=== PATIENT | female | born 1960 | race Caucasian/White ===

== ENCOUNTER 2016-12-02 18:04 | Emergency (ER) | payer OTHER ==
[2016-12-02 19:15] VITALS: BP 156/90
--- NOTE | 2016-12-02 19:31 | UC ---
Dental HPI - HPI Summary HPI Summary: Firm lump noted on roof mouth---no pain no injury - History of Current Complaint Chief Complaint: UCDentalProblem Stated Complaint: SORE IN MOUTH Time Seen by Provider: 12/02/16 19:24 Hx Obtained From: Patient ?: No Onset/Duration: Sudden Onset - noticed for the first time tonight Pain Intensity: 0 Related History: Swelling - Allergies/Home Medications Allergies/Adverse Reactions: Allergies Allergy/AdvReac Type Severity Reaction Status Date / Time Latex Allergy Rash Verified 12/02/16 19:15 NOVACAINE Allergy Swelling Uncoded 12/02/16 19:15 Of Face,Lips,& Throat PMH/Surg Hx/FS Hx/Imm Hx Previously Healthy: No Cardiovascular History: Hypertension Psychological History: Anxiety - Surgical History Surgical History: Yes Surgery Procedure, Year, and Place: KIDNEYS - DUE TO INFECTION. C SECTION - 1988. TUBAL LIGATION - Family History Known Family History: Positive: None - Social History Occupation: Works From/At Home Lives: With Family Alcohol Use: None Substance Use Type: None Smoking Status (MU): Light Every Day Tobacco Smoker Type: Cigarettes Household Exposure Type: Cigarettes Cessation Counseling: Patient Advised to Stop Review of Systems Constitutional: Negative Skin: Negative Eyes: Negative ENT: Negative, Other - concerned about a lump on the top of her mouth Respiratory: Negative Cardiovascular: Negative Gastrointestinal: Negative Genitourinary: Negative Motor: Negative Neurovascular: Negative Musculoskeletal: Negative Neurological: Negative Psychological: Negative Is Patient Immunocompromised?: No All Other Systems Reviewed And Are Negative: Yes Physical Exam Triage Information Reviewed: Yes Appearance: No Pain Distress, Ill-Appearing - appears older than stated age, Obese Vital Signs: Initial Vital Signs Temp 97.2 F 12/02/16 19:13 Pulse 119 12/02/16 19:13 Resp 18 12/02/16 19:13 BP 156/90 12/02/16 19:13 Pulse Ox 100 12/02/16 19:13 Vital Signs Reviewed: Yes Eye Exam: Normal Eyes: Positive: Conjunctiva Clear ENT Exam: Normal ENT: Positive: Normal ENT inspection, Hearing grossly normal, Pharynx normal. Negative: Nasal congestion, Nasal drainage, Trismus, Muffled/hoarse voice Dental Exam: Normal Dental: Positive: Percussion Tenderness @, Gross Decay/Caries @, Other: - torus on hard palate Neck exam: Normal Neck: Positive: Supple, Nontender, No Lymphadenopathy Respiratory Exam: Normal Respiratory: Positive: Chest non-tender, No respiratory distress, No accessory muscle use Cardiovascular Exam: Normal Cardiovascular: Positive: RRR, Pulses Normal, Brisk Capillary Refill Musculoskeletal Exam: Normal Musculoskeletal: Positive: Strength Intact, ROM Intact, No Edema Neurological Exam: Normal Neurological: Positive: Alert, Muscle Tone Normal Psychological Exam: Normal Psychological: Positive: Normal Response To Family Skin Exam: Normal Dental Complaint Course/Dx - Course Course Of Treatment: clorhexadiene rinse, follow with dentist as planned - Differential Dx/Diagnosis Differential Diagnosis/Dx: Dental Caries, Other - torus on hard palate Provider Diagnoses: Torus hard palate, dental caries Discharge - Discharge Plan Condition: Stable Disposition: HOME Prescriptions: Chlorhexidine MOUTHWASH 0.12%* [Peridex Mouth Wash 0.12%*] 15 ml .SEE ORDER TID #473 [email or web address] Patient Education Materials: Toothache (ED), Hypertension (ED) Referrals: Ignacio Bear NP [Primary Care Provider] - Additional Instructions: A hard lump on the roof of the mouth may be a bone growth called a torus. These growths do not pose a health risk and are generally left untreated unless they cause difficulties while eating or a person requires dentures Follow with dentist as planned
== END 2016-12-02 19:46 | disposition home or self-care (01) ==
LOC: UCEAST 18:04
DX: K02.9 Dental caries, unspecified (principal); F17.210 Nicotine dependence, cigarettes, uncomplicated; I10 Essential (primary) hypertension; M27.0 Developmental disorders of jaws
CPT/HCPCS: 99212; G0463

== ENCOUNTER 2023-05-12 11:54 | Inpatient (IN) ==
[2023-05-12 13:09] LABS: ABS Basophils 0.1 10^3/uL (0.0-0.1); ABS Eosinophils 0.2 10^3/uL (0.0-0.5); ABS Lymphocytes 1.7 10^3/uL (1.0-4.8); ABS Monocytes 0.6 10^3/uL (0.0-0.9); ABS Neutrophils 15.1 10^3/uL (1.5-7.6); ABS Nucleated RBC 0.01 10^3/ul; Eosinophil % 1.2 %; Hematocrit 37.3 % (35-45); Hemoglobin 12.8 g/dL (11.5-14.3); Lymphocyte % 9.7 %; Mean Corpuscular Hemoglobin 29.4 pg (27-33); Mean Corpuscular Hgb Conc 34.3 g/dL (31-36); Mean Corpuscular Volume 85.6 fL (80-97); Mean Platelet Volume 7.9 fL (7.5-11.2); Nucleated Red Blood Cells % 0.1 %/100WBC (0.0-0.8); Platelet Count 464 10^3/uL (150-450); Red Blood Count 4.36 10^6/uL (3.63-4.92); Red Cell Distribution Width 14.1 % (12-17); White Blood Count 17.7 10^3/uL (3.8-11.8)
[2023-05-12 13:48] LABS: ALT 62 U/L (7-52); Albumin 2.7 g/dL (3.2-5.2); Albumin/Globulin Ratio 0.8 (1-3); Alkaline Phosphatase 210 U/L (35-149); Anion Gap 13 mmol/L (2-16); Blood Urea Nitrogen 28 mg/dL (6-24); CO2 Carbon Dioxide 28 mmol/L (22-32); Calcium 8.1 mg/dL (8.6-10.3); Chloride 96 mmol/L (101-111); Creatinine, Serum 1.05 mg/dL (0.51-0.95); Globulin 3.6 g/dL (2-4); Glucose 138 mg/dL (70-100); Sodium 137 mmol/L (135-145); Total Protein 6.3 g/dL (6.4-8.9); eGFR CKD-EPI 60.5 (>60)
[2023-05-12 14:21] LABS: Urine Appearance Turbid; Urine Bilirubin Negative (Negative); Urine Blood 3+ (Negative); Urine Color Yellow; Urine Glucose Negative (Negative); Urine Ketones Negative (Negative); Urine Nitrite Negative (Negative); Urine Protein 2+ (>=100 mg/dL) (Negative); Urine Specific Gravity 1.014 (1.002-1.030); Urine Urobilinogen Negative (Negative); Urine pH 7.5 (5.0-8.0)
[2023-05-12 14:39] LABS: Urine Bacteria 1+ /HPF (Absent); Urine Red Blood Cell 3+(>10/hpf) /HPF (0-Trace); Urine Squamous Epithelial Cell Present /HPF (Absent); Urine White Blood Cell 2+(11-20/hpf) /HPF (0-Trace)
[2023-05-12] MEDS: Lactated Ringers 1000 ml BAG 1,000 ML IV ONE ×2 (14:47→16:45)
[2023-05-12] MEDS: Cefepime 2 GM in Dextrose 2 GM/50 ML BAG IV ONE (15:14)
[2023-05-12] MEDS: Enoxaparin 40 MG/0.4 ML SYR SUBCUT SCH (16:44)
[2023-05-12] MEDS: Potassium Chlor 20 meq TAB.ER PO ONE (16:44)
[2023-05-12] MEDS ORDERED: Albuterol HFA INHALER 8 gm MDI INH PRN (17:12)
[2023-05-12 22:06] LABS: Creatine Kinase 3231 U/L (10-223)
[2023-05-12 22:22] LABS: Hepatitis C Antibody Negative (Negative)
[2023-05-13 04:12] LABS: Rheumatoid Factor 584 IU/mL (<15)
[2023-05-13 06:49] LABS: ABS Basophils 0.1 10^3/uL (0.0-0.1); ABS Eosinophils 0.5 10^3/uL (0.0-0.5); ABS Lymphocytes 1.2 10^3/uL (1.0-4.8); ABS Monocytes 0.5 10^3/uL (0.0-0.9); ABS Neutrophils 10.9 10^3/uL (1.5-7.6); Eosinophil % 3.5 %; Hematocrit 35.1 % (35-45); Hemoglobin 11.6 g/dL (11.5-14.3); Lymphocyte % 9.2 %; Mean Corpuscular Volume 87.8 fL (80-97); Mean Platelet Volume 7.5 fL (7.5-11.2); Platelet Count 318 10^3/uL (150-450); Red Cell Distribution Width 14.5 % (12-17); White Blood Count 13.1 10^3/uL (3.8-11.8)
[2023-05-13 07:09] LABS: Calcium 7.3 mg/dL (8.6-10.3); Creatinine, Serum 0.87 mg/dL (0.51-0.95); Magnesium 1.8 mg/dL (1.9-2.7); Potassium 3.5 mmol/L (3.5-5.0); eGFR CKD-EPI 75.8 (>60)
[2023-05-13 07:23] LABS: TSH Ultra Thyroid Stim Horm 1.87 mcIU/mL (0.34-5.60)
[2023-05-13] MEDS: Aspirin EC 81 mg TAB.EC (enteric coated) PO SCH (08:48)
[2023-05-13] MEDS: Morphine 2 MG/ML SYRINGE IV ONE (20:27)
[2023-05-14 06:38] LABS: ABS Basophils 0.1 10^3/uL (0.0-0.1); ABS Eosinophils 0.8 10^3/uL (0.0-0.5); ABS Lymphocytes 1.7 10^3/uL (1.0-4.8); ABS Monocytes 0.5 10^3/uL (0.0-0.9); ABS Neutrophils 10.9 10^3/uL (1.5-7.6); Eosinophil % 5.7 %; Hematocrit 32.9 % (35-45); Hemoglobin 11.2 g/dL (11.5-14.3); Lymphocyte % 11.8 %; Mean Corpuscular Hemoglobin 28.9 pg (27-33); Mean Corpuscular Hgb Conc 33.9 g/dL (31-36); Mean Corpuscular Volume 85.3 fL (80-97); Mean Platelet Volume 7.6 fL (7.5-11.2); Platelet Count 326 10^3/uL (150-450); Red Blood Count 3.86 10^6/uL (3.63-4.92); Red Cell Distribution Width 14.4 % (12-17)
[2023-05-14 07:15] LABS: Albumin 2.2 g/dL (3.2-5.2); Albumin/Globulin Ratio 0.8 (1-3); Calcium 7.4 mg/dL (8.6-10.3); Creatinine, Serum 0.97 mg/dL (0.51-0.95); Globulin 2.7 g/dL (2-4); Potassium 3.5 mmol/L (3.5-5.0); Total Bilirubin 0.9 mg/dL (0.2-1.0); Total Protein 4.9 g/dL (6.4-8.9); eGFR CKD-EPI 66.5 (>60)
[2023-05-14] MEDS: HYDROcodone/Acetamin 10/325 TAB (NF) PO PRN (10:57)
[2023-05-15 06:49] LABS: ABS Basophils 0.1 10^3/uL (0.0-0.1); ABS Eosinophils 0.8 10^3/uL (0.0-0.5); ABS Lymphocytes 1.4 10^3/uL (1.0-4.8); ABS Monocytes 0.5 10^3/uL (0.0-0.9); ABS Neutrophils 11.8 10^3/uL (1.5-7.6); ABS Nucleated RBC 0.01 10^3/ul; Eosinophil % 5.8 %; Hematocrit 33.1 % (35-45); Hemoglobin 11.1 g/dL (11.5-14.3); Lymphocyte % 9.3 %; Mean Corpuscular Hemoglobin 28.7 pg (27-33); Mean Corpuscular Hgb Conc 33.6 g/dL (31-36); Mean Corpuscular Volume 85.5 fL (80-97); Mean Platelet Volume 7.9 fL (7.5-11.2); Nucleated Red Blood Cells % 0.1 %/100WBC (0.0-0.8); Platelet Count 343 10^3/uL (150-450); Red Blood Count 3.87 10^6/uL (3.63-4.92); Red Cell Distribution Width 14.3 % (12-17); White Blood Count 14.6 10^3/uL (3.8-11.8)
[2023-05-15 07:08] LABS: Albumin 2.2 g/dL (3.2-5.2); Albumin/Globulin Ratio 0.8 (1-3); Calcium 7.4 mg/dL (8.6-10.3); Creatinine, Serum 1.05 mg/dL (0.51-0.95); Globulin 2.9 g/dL (2-4); Potassium 3.9 mmol/L (3.5-5.0); Total Bilirubin 0.7 mg/dL (0.2-1.0); Total Protein 5.1 g/dL (6.4-8.9); eGFR CKD-EPI 60.5 (>60)
[2023-05-15 12:03] LABS: Scl 70 Ab, IgG, S <0.2 U
[2023-05-15 21:00] LABS: Hepatitis B Surface Antigen Nonreactive (Nonreactive)
[2023-05-15 21:05] LABS: Hepatitis B Core IgM Nonreactive (Nonreactive)
[2023-05-15 21:18] LABS: Hepatitis B Surface Ab Immune (Immune)
[2023-05-16 06:51] LABS: ABS Basophils 0.1 10^3/uL (0.0-0.1); ABS Eosinophils 1.1 10^3/uL (0.0-0.5); ABS Lymphocytes 1.3 10^3/uL (1.0-4.8); ABS Monocytes 0.4 10^3/uL (0.0-0.9); ABS Neutrophils 12.5 10^3/uL (1.5-7.6); Hematocrit 32.7 % (35-45); Hemoglobin 11.2 g/dL (11.5-14.3); Lymphocyte % 8.5 %; Mean Corpuscular Hemoglobin 29.2 pg (27-33); Mean Corpuscular Hgb Conc 34.1 g/dL (31-36); Mean Corpuscular Volume 85.5 fL (80-97); Mean Platelet Volume 7.5 fL (7.5-11.2); Platelet Count 336 10^3/uL (150-450); Red Blood Count 3.83 10^6/uL (3.63-4.92); Red Cell Distribution Width 14.4 % (12-17); White Blood Count 15.4 10^3/uL (3.8-11.8)
[2023-05-16 07:10] LABS: Calcium 7.7 mg/dL (8.6-10.3); Creatinine, Serum 1.07 mg/dL (0.51-0.95); Potassium 4.8 mmol/L (3.5-5.0); eGFR CKD-EPI 59.1 (>60)
[2023-05-16] MEDS: Nystatin TOP POWDER 15 GM BTL TOPICAL SCH (20:56)
[2023-05-17 06:07] LABS: ABS Basophils 0.1 10^3/uL (0.0-0.1); ABS Eosinophils 1.1 10^3/uL (0.0-0.5); ABS Lymphocytes 1.6 10^3/uL (1.0-4.8); ABS Monocytes 0.7 10^3/uL (0.0-0.9); ABS Neutrophils 10.8 10^3/uL (1.5-7.6); Eosinophil % 7.8 %; Hemoglobin 10.4 g/dL (11.5-14.3); Lymphocyte % 11.2 %; Mean Corpuscular Hgb Conc 33.7 g/dL (31-36); Mean Corpuscular Volume 85.8 fL (80-97); Mean Platelet Volume 7.8 fL (7.5-11.2); Platelet Count 330 10^3/uL (150-450); Red Blood Count 3.61 10^6/uL (3.63-4.92); Red Cell Distribution Width 14.5 % (12-17); White Blood Count 14.3 10^3/uL (3.8-11.8)
[2023-05-17 06:48] LABS: Calcium 7.5 mg/dL (8.6-10.3); Creatinine, Serum 1.13 mg/dL (0.51-0.95); eGFR CKD-EPI 55.4 (>60)
[2023-05-17 13:13] LABS: Hepatitis Be Antigen Positive (Negative)
[2023-05-17 13:17] LABS: Hepatitis Be Antibody Negative (Negative)
[2023-05-17 17:16] LABS: JO-1 Antibody <0.2 U
[2023-05-17] MEDS: Iohexol 350 (CONTRAST) 500 ML MDV IV ONE (19:26)
[2023-05-18 06:32] LABS: ABS Lymphocytes 1.5 10^3/uL (1.0-4.8); ABS Monocytes 0.7 10^3/uL (0.0-0.9); ABS Neutrophils 11.6 10^3/uL (1.5-7.6); ABS Nucleated RBC 0.02 10^3/ul; Eosinophil % 0.3 %; Hematocrit 32.5 % (35-45); Hemoglobin 10.5 g/dL (11.5-14.3); Lymphocyte % 10.5 %; Mean Corpuscular Hgb Conc 32.3 g/dL (31-36); Mean Corpuscular Volume 89.7 fL (80-97); Mean Platelet Volume 7.5 fL (7.5-11.2); Nucleated Red Blood Cells % 0.1 %/100WBC (0.0-0.8); Platelet Count 367 10^3/uL (150-450); Red Blood Count 3.62 10^6/uL (3.63-4.92); Red Cell Distribution Width 15.3 % (12-17); White Blood Count 13.8 10^3/uL (3.8-11.8)
[2023-05-18 07:03] LABS: Calcium 8.5 mg/dL (8.6-10.3); Creatinine, Serum 1.1 mg/dL (0.51-0.95); Potassium 5.3 mmol/L (3.5-5.0); eGFR CKD-EPI 57.2 (>60)
[2023-05-18 11:33] LABS: C-ANCA Positive 1:256 (Negative); P-ANCA Negative (Negative)
[2023-05-18] MEDS: Polyethylene Glycol 3350 17 GM PACKET PO PRN (12:54)
[2023-05-18 13:05] LABS: Mitochondria M2 Antibody <0.1 U
[2023-05-18 13:18] LABS: Cyclic Citrullinated Pept IgG >250.0 U
[2023-05-18] MEDS ORDERED: Senna TAB 8.6 mg TAB PO PRN (14:31)
[2023-05-18] MEDS: Lactulose 30 ml UDC PO SCH (20:27)
[2023-05-19 06:13] LABS: ABS Basophils 0.1 10^3/uL (0.0-0.1); ABS Eosinophils 0.1 10^3/uL (0.0-0.5); ABS Lymphocytes 2.1 10^3/uL (1.0-4.8); ABS Monocytes 0.9 10^3/uL (0.0-0.9); ABS Neutrophils 13.2 10^3/uL (1.5-7.6); Eosinophil % 0.9 %; Hematocrit 30.7 % (35-45); Hemoglobin 10.2 g/dL (11.5-14.3); Lymphocyte % 12.8 %; Mean Corpuscular Hemoglobin 28.4 pg (27-33); Mean Corpuscular Hgb Conc 33.3 g/dL (31-36); Mean Corpuscular Volume 85.4 fL (80-97); Mean Platelet Volume 7.4 fL (7.5-11.2); Platelet Count 403 10^3/uL (150-450); Red Cell Distribution Width 14.8 % (12-17); White Blood Count 16.4 10^3/uL (3.8-11.8)
[2023-05-19 06:56] LABS: Albumin 2.3 g/dL (3.2-5.2); Albumin/Globulin Ratio 0.8 (1-3); Calcium 8.2 mg/dL (8.6-10.3); Creatinine, Serum 1.06 mg/dL (0.51-0.95); Potassium 4.6 mmol/L (3.5-5.0); Total Bilirubin 0.3 mg/dL (0.2-1.0); Total Protein 5.3 g/dL (6.4-8.9); eGFR CKD-EPI 59.8 (>60)
[2023-05-19 12:52] LABS: Cytomegalovirus IgG Antibody Positive (Negative)
[2023-05-19 15:53] LABS: UR Microalbumin (mg/L) 314.5 mg/L; Urine Creatinine 39.31 mg/dL; Urine Creatinine Concentration 39.31 mg/dL (20.00-320.00)
[2023-05-19 18:35] LABS: Hepatitis B DNA Quantitative Undetected IU/mL (Undetected)
[2023-05-20 06:59] LABS: Hematocrit 31.6 % (35-45); Hemoglobin 10.5 g/dL (11.5-14.3); Mean Corpuscular Hemoglobin 28.5 pg (27-33); Mean Corpuscular Hgb Conc 33.2 g/dL (31-36); Mean Corpuscular Volume 85.8 fL (80-97); Red Blood Count 3.68 10^6/uL (3.63-4.92); Red Cell Distribution Width 14.7 % (12-17); White Blood Count 19.9 10^3/uL (3.8-11.8)
[2023-05-20 07:31] LABS: ABS Basophils 0.1 10^3/uL (0.0-0.1); ABS Eosinophils 0.1 10^3/uL (0.0-0.5); ABS Lymphocytes 2.9 10^3/uL (1.0-4.8); ABS Monocytes 0.9 10^3/uL (0.0-0.9); ABS Neutrophils 15.9 10^3/uL (1.5-7.6); ABS Nucleated RBC 0.01 10^3/ul; Eosinophil % 0.3 %; Giant Platelets Present; Large Platelets Present; Lymphocyte % 14.8 %; Nucleated Red Blood Cells % 0.1 %/100WBC (0.0-0.8)
[2023-05-20 09:10] LABS: Albumin 2.7 g/dL (3.2-5.2); Albumin/Globulin Ratio 0.7 (1-3); Calcium 8.7 mg/dL (8.6-10.3); Creatinine, Serum 1.11 mg/dL (0.51-0.95); Globulin 3.7 g/dL (2-4); Potassium 4.8 mmol/L (3.5-5.0); Total Bilirubin 0.4 mg/dL (0.2-1.0); Total Protein 6.4 g/dL (6.4-8.9); eGFR CKD-EPI 56.6 (>60)
[2023-05-20] MEDS ORDERED: riTUXimab-ABBS 10 MG/ML 10 ML VIAL IVPB SCH (11:00)
[2023-05-21 06:35] LABS: ABS Lymphocytes 1.4 10^3/uL (1.0-4.8); ABS Monocytes 0.8 10^3/uL (0.0-0.9); ABS Neutrophils 11.8 10^3/uL (1.5-7.6); ABS Nucleated RBC 0.02 10^3/ul; Eosinophil % 0.3 %; Hemoglobin 10.7 g/dL (11.5-14.3); Lymphocyte % 10.2 %; Mean Corpuscular Hemoglobin 28.5 pg (27-33); Mean Corpuscular Hgb Conc 33.6 g/dL (31-36); Mean Corpuscular Volume 84.9 fL (80-97); Nucleated Red Blood Cells % 0.1 %/100WBC (0.0-0.8); Platelet Count 457 10^3/uL (150-450); Red Blood Count 3.77 10^6/uL (3.63-4.92); Red Cell Distribution Width 14.8 % (12-17); White Blood Count 14.1 10^3/uL (3.8-11.8)
[2023-05-21 07:00] LABS: Calcium 8.3 mg/dL (8.6-10.3); Creatinine, Serum 1.08 mg/dL (0.51-0.95); eGFR CKD-EPI 58.4 (>60)
[2023-05-21] MEDS ORDERED: methylPREDNISolone SOD SUCC 1000 MG ML VIAL IVPB SCH (13:00)
[2023-05-21] MEDS ORDERED: methylPREDNISolone SOD SUCC 1000 MG in NS 0.9% 100 ML IVPB ONE (13:00)
[2023-05-21] MEDS ORDERED: methylPREDNISolone SOD SUCC 1000 MG in NS 0.9% 100 ML IVPB SCH (13:00)
[2023-05-21] MEDS: HYDROcodone/ACETAMIN 5/325 mg TAB PO PRN (13:34)
[2023-05-21] MEDS: methylPREDNISolone SOD SUCC 1,000 MG in NS 0.9% 250 ml 250 ML IVPB SCH (14:24)
[2023-05-22 06:53] LABS: ABS Lymphocytes 1.1 10^3/uL (1.0-4.8); ABS Monocytes 0.3 10^3/uL (0.0-0.9); ABS Neutrophils 14.9 10^3/uL (1.5-7.6); Hematocrit 31.4 % (35-45); Hemoglobin 10.5 g/dL (11.5-14.3); Lymphocyte % 6.8 %; Mean Corpuscular Hemoglobin 28.4 pg (27-33); Mean Corpuscular Hgb Conc 33.4 g/dL (31-36); Mean Corpuscular Volume 84.8 fL (80-97); Mean Platelet Volume 7.4 fL (7.5-11.2); Platelet Count 487 10^3/uL (150-450); Red Cell Distribution Width 14.6 % (12-17); White Blood Count 16.3 10^3/uL (3.8-11.8)
[2023-05-22 07:03] LABS: Albumin 2.6 g/dL (3.2-5.2); Albumin/Globulin Ratio 0.8 (1-3); Calcium 8.4 mg/dL (8.6-10.3); Creatinine, Serum 1.31 mg/dL (0.51-0.95); Globulin 3.1 g/dL (2-4); Potassium 5.2 mmol/L (3.5-5.0); Total Bilirubin 0.3 mg/dL (0.2-1.0); Total Protein 5.7 g/dL (6.4-8.9); eGFR CKD-EPI 46.4 (>60)
[2023-05-22 10:16] VITALS: BP 146/82
[2023-05-22 15:14] LABS: QuantiferonTb Gold Plus Result Negative (Negative)
[2023-05-24 17:08] LABS: HBV Surface Antigen Mutation Indeterminate; Hepatitis B Polymerase Mut Indeterminate
[2023-06-01 04:10] LABS: Anti-EJ Ab Negative (Negative); Anti-Ku Ab Negative (Negative); Anti-MDA-5 Ab (CADM-140) <20 Units (<20); Anti-MI-2-Ab Negative (Negative); Anti-OJ Ab Negative (Negative); Anti-PL-12 Ab Negative (Negative); Anti-PL-7 Ab Negative (Negative); Anti-SAE1 Ab, IgG <20 Units (<20); Anti-SRP Ab Negative (Negative); Anti-TIF 1gamma Ab <20 Units (<20); Anti-U2 RNP Ab Negative (Negative); Anti-U3 RNP (Fibrillarin) Negative (Negative)
== END 2023-05-22 09:54 | DRG 543 ==
LOC: EDHOLD 11:54 → ED 11:54 → MEDTELE 18:02 → SUATTDRO 05-14 11:50
PROVIDERS: ADMIT Student in an Organized Health Care Education/Training Program; ATTEND Internal Medicine

== ENCOUNTER 2023-05-22 09:12 | Inpatient (IN) ==
[2023-05-22] MEDS: Enoxaparin 40 MG/0.4 ML SYR SUBCUT SCH (16:32)
[2023-05-22] MEDS ORDERED: methylPREDNISolone SOD SUCC 1000 MG ML VIAL IVPB SCH (17:00)
[2023-05-22] MEDS ORDERED: Polyethylene Glycol 3350 17 GM PACKET PO PRN (17:01)
[2023-05-22] MEDS ORDERED: Lactulose 30 ml UDC PO PRN (17:01)
[2023-05-22] MEDS ORDERED: methylPREDNISolone SOD SUCC 1000 MG in NS 0.9% 100 ML IVPB SCH (18:00)
[2023-05-22] MEDS: methylPREDNISolone SOD SUCC 1,000 MG in NS 0.9% 250 ml 250 ML IVPB SCH (18:45)
[2023-05-23] MEDS: HYDROcodone/ACETAMIN 5/325 mg TAB PO PRN (03:35)
[2023-05-23] MEDS: Aspirin EC 81 mg TAB.EC (enteric coated) PO SCH (08:14)
[2023-05-24 06:32] LABS: ABS Monocytes 0.2 10^3/uL (0.0-0.9); ABS Neutrophils 14.7 10^3/uL (1.5-7.6); Hematocrit 31.7 % (35-45); Hemoglobin 10.8 g/dL (11.5-14.3); Lymphocyte % 6.3 %; Mean Corpuscular Hemoglobin 28.8 pg (27-33); Mean Corpuscular Volume 84.6 fL (80-97); Mean Platelet Volume 6.9 fL (7.5-11.2); Platelet Count 599 10^3/uL (150-450); Red Blood Count 3.75 10^6/uL (3.63-4.92); Red Cell Distribution Width 15.3 % (12-17)
[2023-05-24 07:23] LABS: ALT 43 U/L (7-52); Albumin 2.8 g/dL (3.2-5.2); Albumin/Globulin Ratio 0.9 (1-3); Alkaline Phosphatase 142 U/L (35-149); Anion Gap 10 mmol/L (2-16); Blood Urea Nitrogen 68 mg/dL (6-24); CO2 Carbon Dioxide 24 mmol/L (22-32); Calcium 8.3 mg/dL (8.6-10.3); Chloride 103 mmol/L (101-111); Creatinine, Serum 1.31 mg/dL (0.51-0.95); Glucose 157 mg/dL (70-100); Sodium 137 mmol/L (135-145); Total Bilirubin 0.4 mg/dL (0.2-1.0); Total Protein 5.8 g/dL (6.4-8.9); eGFR CKD-EPI 46.4 (>60)
[2023-05-24 08:31] LABS: Potassium Redraw 4.8 mmol/L (3.5-5.0)
[2023-05-24] MEDS: Polyethylene Glycol 3350 17 GM PACKET PO SCH (09:14)
[2023-05-29] MEDS: HYDROcodone/ACETAMIN 5/325 mg TAB PO PRN (23:42)
[2023-05-31 06:27] LABS: Hematocrit 28.5 % (35-45); Hemoglobin 9.6 g/dL (11.5-14.3); Mean Corpuscular Hemoglobin 28.7 pg (27-33); Mean Corpuscular Hgb Conc 33.7 g/dL (31-36); Mean Corpuscular Volume 85.1 fL (80-97); Mean Platelet Volume 7.7 fL (7.5-11.2); Platelet Count 391 10^3/uL (150-450); Red Blood Count 3.35 10^6/uL (3.63-4.92); Red Cell Distribution Width 16.2 % (12-17); White Blood Count 14.8 10^3/uL (3.8-11.8)
[2023-05-31 07:19] LABS: ABS Eosinophils 0.1 10^3/uL (0.0-0.5); ABS Lymphocytes 2.1 10^3/uL (1.0-4.8); ABS Monocytes 1.1 10^3/uL (0.0-0.9); ABS Neutrophils 11.5 10^3/uL (1.5-7.6); Eosinophil % 0.7 %; Lymphocyte % 14.1 %
[2023-05-31 07:44] LABS: Albumin 2.7 g/dL (3.2-5.2); Albumin/Globulin Ratio 1.2 (1-3); Calcium 7.9 mg/dL (8.6-10.3); Creatinine, Serum 1.35 mg/dL (0.51-0.95); Globulin 2.2 g/dL (2-4); Potassium 4.4 mmol/L (3.5-5.0); Total Bilirubin 0.3 mg/dL (0.2-1.0); Total Protein 4.9 g/dL (6.4-8.9); eGFR CKD-EPI 44.7 (>60)
[2023-06-01 21:24] LABS: C-ANCA Positive 1:32 (Negative); P-ANCA Negative (Negative)
[2023-06-02 06:47] LABS: Hematocrit 29.5 % (35-45); Hemoglobin 9.8 g/dL (11.5-14.3); Mean Corpuscular Hemoglobin 28.7 pg (27-33); Mean Corpuscular Hgb Conc 33.4 g/dL (31-36); Mean Platelet Volume 7.9 fL (7.5-11.2); Platelet Count 386 10^3/uL (150-450); Red Blood Count 3.43 10^6/uL (3.63-4.92); Red Cell Distribution Width 16.5 % (12-17)
[2023-06-02 09:00] LABS: Albumin 2.9 g/dL (3.2-5.2); Albumin/Globulin Ratio 1.2 (1-3); Calcium 8.1 mg/dL (8.6-10.3); Creatinine, Serum 1.56 mg/dL (0.51-0.95); Globulin 2.4 g/dL (2-4); Potassium 4.8 mmol/L (3.5-5.0); Total Bilirubin 0.3 mg/dL (0.2-1.0); Total Protein 5.3 g/dL (6.4-8.9); eGFR CKD-EPI 37.6 (>60)
[2023-06-02 09:08] LABS: ABS Basophils 0.1 10^3/uL (0.0-0.1); ABS Eosinophils 0.1 10^3/uL (0.0-0.5); ABS Lymphocytes 2.3 10^3/uL (1.0-4.8); ABS Neutrophils 11.6 10^3/uL (1.5-7.6); Eosinophil % 0.8 %; Lymphocyte % 15.2 %
[2023-06-03] MEDS: Senna TAB 8.6 mg TAB PO PRN (20:32)
[2023-06-07 06:31] LABS: Hematocrit 29.8 % (35-45); Hemoglobin 9.8 g/dL (11.5-14.3); Mean Corpuscular Hemoglobin 28.4 pg (27-33); Mean Corpuscular Hgb Conc 32.8 g/dL (31-36); Mean Corpuscular Volume 86.6 fL (80-97); Platelet Count 263 10^3/uL (150-450); Red Blood Count 3.44 10^6/uL (3.63-4.92); Red Cell Distribution Width 17.6 % (12-17); White Blood Count 14.3 10^3/uL (3.8-11.8)
[2023-06-07 06:51] LABS: Albumin 2.8 g/dL (3.2-5.2); Albumin/Globulin Ratio 1.3 (1-3); Calcium 8.1 mg/dL (8.6-10.3); Creatinine, Serum 1.75 mg/dL (0.51-0.95); Globulin 2.1 g/dL (2-4); Potassium 4.4 mmol/L (3.5-5.0); Total Bilirubin 0.4 mg/dL (0.2-1.0); Total Protein 4.9 g/dL (6.4-8.9); eGFR CKD-EPI 32.7 (>60)
[2023-06-07 07:32] LABS: ABS Eosinophils 0.1 10^3/uL (0.0-0.5); ABS Lymphocytes 2.5 10^3/uL (1.0-4.8); ABS Monocytes 0.8 10^3/uL (0.0-0.9); ABS Neutrophils 10.9 10^3/uL (1.5-7.6); ABS Nucleated RBC 0.01 10^3/ul; Eosinophil % 0.5 %; Lymphocyte % 17.7 %; Nucleated Red Blood Cells % 0.1 %/100WBC (0.0-0.8)
[2023-06-08] MEDS: Nystatin TOP POWDER 15 GM BTL TOPICAL SCH (09:13)
[2023-06-08 16:53] LABS: C Reactive Protein 8.24 mg/L (<8.01)
[2023-06-08 17:46] LABS: HIV 4th Generation Nonreactive (Nonreactive)
[2023-06-08 18:35] LABS: Hepatitis B Surface Antigen Nonreactive (Nonreactive)
[2023-06-08 18:52] LABS: Hepatitis B Surface Ab Immune (Immune)
[2023-06-08 18:53] LABS: Hepatitis C Antibody Negative (Negative)
[2023-06-09 06:18] LABS: Mean Platelet Volume 7.9 fL (7.5-11.2); Platelet Count 224 10^3/uL (150-450)
[2023-06-09 06:27] LABS: INR 0.97 (0.83-1.13)
[2023-06-09 11:24] LABS: Albumin 2.7 g/dL (3.2-5.2); Albumin/Globulin Ratio 1.4 (1-3); Calcium 7.8 mg/dL (8.6-10.3); Creatinine, Serum 1.58 mg/dL (0.51-0.95); Globulin 1.9 g/dL (2-4); Potassium 4.4 mmol/L (3.5-5.0); Total Bilirubin 0.4 mg/dL (0.2-1.0); Total Protein 4.6 g/dL (6.4-8.9)
[2023-06-09 11:56] LABS: Hematocrit 32.4 % (35-45); Hemoglobin 10.7 g/dL (11.5-14.3); Mean Corpuscular Hgb Conc 33.2 g/dL (31-36); Mean Corpuscular Volume 87.3 fL (80-97); Mean Platelet Volume 8.1 fL (7.5-11.2); Platelet Count 250 10^3/uL (150-450); Red Blood Count 3.71 10^6/uL (3.63-4.92); Red Cell Distribution Width 18.4 % (12-17); White Blood Count 13.8 10^3/uL (3.8-11.8)
[2023-06-09 12:42] LABS: Albumin 3.1 g/dL (3.2-5.2); Albumin/Globulin Ratio 1.3 (1-3); Calcium 7.9 mg/dL (8.6-10.3); Creatinine, Serum 1.73 mg/dL (0.51-0.95); Globulin 2.4 g/dL (2-4); Total Bilirubin 0.4 mg/dL (0.2-1.0); Total Protein 5.5 g/dL (6.4-8.9); eGFR CKD-EPI 33.2 (>60)
[2023-06-09 14:03] LABS: Hematocrit 29.4 % (35-45); Hemoglobin 9.6 g/dL (11.5-14.3); Mean Corpuscular Hemoglobin 28.4 pg (27-33); Mean Corpuscular Hgb Conc 32.6 g/dL (31-36); Mean Corpuscular Volume 87.1 fL (80-97); Red Blood Count 3.38 10^6/uL (3.63-4.92); Red Cell Distribution Width 17.4 % (12-17); White Blood Count 11.3 10^3/uL (3.8-11.8)
[2023-06-12 06:41] LABS: ABS Eosinophils 0.1 10^3/uL (0.0-0.5); ABS Lymphocytes 2.4 10^3/uL (1.0-4.8); ABS Monocytes 0.8 10^3/uL (0.0-0.9); ABS Nucleated RBC 0.01 10^3/ul; Eosinophil % 0.8 %; Hematocrit 28.6 % (35-45); Hemoglobin 9.6 g/dL (11.5-14.3); Lymphocyte % 21.6 %; Mean Corpuscular Hemoglobin 28.9 pg (27-33); Mean Corpuscular Hgb Conc 33.6 g/dL (31-36); Mean Platelet Volume 7.8 fL (7.5-11.2); Nucleated Red Blood Cells % 0.1 %/100WBC (0.0-0.8); Platelet Count 215 10^3/uL (150-450); Red Blood Count 3.33 10^6/uL (3.63-4.92); White Blood Count 11.3 10^3/uL (3.8-11.8)
[2023-06-12 07:00] LABS: Albumin 2.7 g/dL (3.2-5.2); Albumin/Globulin Ratio 1.4 (1-3); Calcium 7.8 mg/dL (8.6-10.3); Creatinine, Serum 1.68 mg/dL (0.51-0.95); Potassium 4.4 mmol/L (3.5-5.0); Total Bilirubin 0.3 mg/dL (0.2-1.0); Total Protein 4.7 g/dL (6.4-8.9); eGFR CKD-EPI 34.4 (>60)
[2023-06-12 12:17] LABS: Kappa Free Light Chain 2.09 mg/dL; Lambda Free Light Chain, S 2.22 mg/dL
[2023-06-12 16:09] LABS: C-ANCA Positive 1:32 (Negative); P-ANCA Negative (Negative)
[2023-06-12 16:32] LABS: PLA2R, Immunofluorescence, S Negative (Negative)
[2023-06-12 18:39] LABS: Complement C3 150 mg/dL (75 - 175)
[2023-06-12 18:47] LABS: Flag, M-protein Isotype Positive (Negative); Immunoglobulin A (IgA), S 150 mg/dL (61 - 356); Immunoglobulin G (IgG), S 546 mg/dL (767 - 1590); Immunoglobulin M (IgM), S 105 mg/dL (37 - 286); M-protein GK 0.057 g/dL
[2023-06-13] MEDS: Bupivacaine 0.25% SDV PF 10 ML VIAL INJ ONE (09:00)
[2023-06-13] MEDS: Desmopressin Acetate 30 MCG in NS 0.9% 50 ML 50 ML IVPB ONE (10:31)
[2023-06-13 16:45] LABS: Proteinase 3 3.2 U
[2023-06-14 07:13] LABS: ABS Basophils 0.1 10^3/uL (0.0-0.1); ABS Eosinophils 0.1 10^3/uL (0.0-0.5); ABS Lymphocytes 2.6 10^3/uL (1.0-4.8); ABS Monocytes 0.8 10^3/uL (0.0-0.9); ABS Neutrophils 6.7 10^3/uL (1.5-7.6); Eosinophil % 1.1 %; Hematocrit 27.1 % (35-45); Hemoglobin 9.2 g/dL (11.5-14.3); Lymphocyte % 25.4 %; Mean Corpuscular Hemoglobin 29.5 pg (27-33); Mean Corpuscular Volume 86.8 fL (80-97); Mean Platelet Volume 7.5 fL (7.5-11.2); Platelet Count 190 10^3/uL (150-450); Red Blood Count 3.12 10^6/uL (3.63-4.92); Red Cell Distribution Width 18.4 % (12-17); White Blood Count 10.3 10^3/uL (3.8-11.8)
[2023-06-14 07:45] LABS: Albumin 2.8 g/dL (3.2-5.2); Albumin/Globulin Ratio 1.4 (1-3); Calcium 7.8 mg/dL (8.6-10.3); Creatinine, Serum 1.56 mg/dL (0.51-0.95); Potassium 4.5 mmol/L (3.5-5.0); Total Bilirubin 0.3 mg/dL (0.2-1.0); Total Protein 4.8 g/dL (6.4-8.9); eGFR CKD-EPI 37.6 (>60)
[2023-06-15 07:26] LABS: Calcium 7.9 mg/dL (8.6-10.3); Creatinine, Serum 1.59 mg/dL (0.51-0.95); Potassium 4.3 mmol/L (3.5-5.0); eGFR CKD-EPI 36.7 (>60)
[2023-06-15 12:57] LABS: Case Number KR-24-2026
[2023-06-16] MEDS: Enoxaparin 40 MG/0.4 ML SYR SUBCUT SCH (07:34)
[2023-06-16 13:03] LABS: Proteinase 3 1.4 U
[2023-06-18 16:43] LABS: Vitamin D Total 25(OH) 8.9 ng/mL (20-50)
[2023-06-20 05:46] LABS: Hematocrit 27.9 % (35-45); Hemoglobin 9.5 g/dL (11.5-14.3); Mean Corpuscular Hemoglobin 29.5 pg (27-33); Mean Corpuscular Hgb Conc 33.9 g/dL (31-36); Mean Corpuscular Volume 86.8 fL (80-97); Mean Platelet Volume 7.4 fL (7.5-11.2); Platelet Count 185 10^3/uL (150-450); Red Blood Count 3.22 10^6/uL (3.63-4.92); Red Cell Distribution Width 18.4 % (12-17); White Blood Count 9.2 10^3/uL (3.8-11.8)
[2023-06-20 06:16] LABS: Albumin 2.7 g/dL (3.2-5.2); Albumin/Globulin Ratio 1.4 (1-3); Calcium 7.9 mg/dL (8.6-10.3); Creatinine, Serum 1.69 mg/dL (0.51-0.95); Globulin 1.9 g/dL (2-4); Potassium 4.2 mmol/L (3.5-5.0); Total Bilirubin 0.3 mg/dL (0.2-1.0); Total Protein 4.6 g/dL (6.4-8.9); eGFR CKD-EPI 34.1 (>60)
[2023-06-20 07:33] LABS: ABS Basophils 0.1 10^3/uL (0.0-0.1); ABS Lymphocytes 2.7 10^3/uL (1.0-4.8); ABS Monocytes 0.9 10^3/uL (0.0-0.9); ABS Neutrophils 5.5 10^3/uL (1.5-7.6); ABS Nucleated RBC 0.01 10^3/ul; Eosinophil % 0.4 %; Nucleated Red Blood Cells % 0.1 %/100WBC (0.0-0.8)
[2023-06-21] MEDS: Cholecalciferol (VIT D3) 1,000 unit TAB PO SCH (07:33)
[2023-06-21] MEDS: Enoxaparin 40 MG/0.4 ML SYR SUBCUT SCH (07:40)
[2023-06-22 16:24] VITALS: BP 135/70
== END 2023-06-22 16:39 | disposition swing bed (61) | DRG 542 ==
LOC: PMRU 13:28
PROVIDERS: ADMIT Physical Medicine & Rehabilitation; ATTEND Physical Medicine & Rehabilitation

== ENCOUNTER 2023-06-22 15:20 | Inpatient (IN) ==
[2023-06-22] MEDS ORDERED: Ondansetron 4 mg VIAL 2 MG/ML 2 ml VIAL IV PRN (15:22)
[2023-06-22] MEDS ORDERED: Albuterol HFA INHALER 8 gm MDI INH PRN (15:29)
[2023-06-22] MEDS ORDERED: Polyethylene Glycol 3350 17 GM PACKET PO PRN (17:15)
[2023-06-22] MEDS: Nystatin TOP POWDER 15 GM BTL TOPICAL SCH (20:44)
[2023-06-22] MEDS ORDERED: Senna TAB 8.6 mg TAB PO PRN (21:00)
[2023-06-23] MEDS: HYDROcodone/ACETAMIN 5/325 mg TAB PO PRN (06:35)
[2023-06-23] MEDS: Cholecalciferol (VIT D3) 1,000 unit TAB PO SCH (08:37)
[2023-06-23] MEDS: Enoxaparin 40 MG/0.4 ML SYR SUBCUT SCH (08:38)
[2023-06-28 08:26] LABS: Hematocrit 33.4 % (35-45); Hemoglobin 11.1 g/dL (11.5-14.3); Mean Corpuscular Hemoglobin 28.9 pg (27-33); Mean Corpuscular Hgb Conc 33.3 g/dL (31-36); Mean Corpuscular Volume 86.8 fL (80-97); Mean Platelet Volume 8.1 fL (7.5-11.2); Platelet Count 190 10^3/uL (150-450); Red Blood Count 3.84 10^6/uL (3.63-4.92); Red Cell Distribution Width 18.1 % (12-17); White Blood Count 7.6 10^3/uL (3.8-11.8)
[2023-06-28 08:41] LABS: Calcium 7.6 mg/dL (8.6-10.3); Creatinine, Serum 1.63 mg/dL (0.51-0.95); eGFR CKD-EPI 35.7 (>60)
[2023-06-28 08:52] LABS: ABS Lymphocytes 2.7 10^3/uL (1.0-4.8); ABS Monocytes 0.4 10^3/uL (0.0-0.9); ABS Neutrophils 4.4 10^3/uL (1.5-7.6); Anisocytosis 1+; Eosinophil % 0.2 %
[2023-06-28 10:53] LABS: Urine Appearance Clear; Urine Bilirubin Negative (Negative); Urine Blood 1+ (Negative); Urine Color Light-Yellow; Urine Glucose Negative (Negative); Urine Ketones Negative (Negative); Urine Nitrite Negative (Negative); Urine Protein 3+ (>=300 mg/dL) (Negative); Urine Specific Gravity 1.015 (1.002-1.030); Urine Urobilinogen Negative (Negative); Urine pH 6.5 (5.0-8.0)
[2023-06-28 11:13] LABS: Urine Bacteria 1+ /HPF (Absent); Urine Red Blood Cell 2+(6-10/hpf) /HPF (0-Trace); Urine Squamous Epithelial Cell Present /HPF (Absent); Urine White Blood Cell Trace(0-5/hpf) /HPF (0-Trace)
[2023-06-29] MEDS: HYDROcodone/ACETAMIN 5/325 mg TAB PO PRN (17:48)
[2023-06-29 17:51] LABS: Proteinase 3 0.5 U
[2023-07-03 08:00] VITALS: BP 121/78
== END 2023-07-03 10:00 | disposition short-term general hospital (02) | DRG 177 ==
LOC: MED 16:40 → SUATTDRO 16:40
PROVIDERS: ADMIT Student in an Organized Health Care Education/Training Program; ATTEND Internal Medicine

== ENCOUNTER 2023-07-03 10:18 | Observation (INO) ==
[2023-07-03] MEDS ORDERED: Al Hydrox/Mg Hydrox/Simet LIQ 30 ML UDC PO PRN (11:22)
[2023-07-03] MEDS ORDERED: Polyethylene Glycol 3350 17 GM PACKET PO PRN (11:22)
[2023-07-03] MEDS ORDERED: Albuterol HFA INHALER 8 gm MDI INH PRN (11:25)
[2023-07-03] MEDS ORDERED: Senna TAB 8.6 mg TAB PO PRN (11:26)
[2023-07-03] MEDS ORDERED: Polyethylene Glycol 3350 BTL 238 GM BTL PO PRN (11:26)
[2023-07-03 12:07] LABS: Hematocrit 33.6 % (35-45); Hemoglobin 11.4 g/dL (11.5-14.3); Mean Corpuscular Hemoglobin 29.3 pg (27-33); Mean Corpuscular Hgb Conc 33.9 g/dL (31-36); Mean Corpuscular Volume 86.4 fL (80-97); Platelet Count 266 10^3/uL (150-450); Red Blood Count 3.89 10^6/uL (3.63-4.92); Red Cell Distribution Width 18.2 % (12-17); White Blood Count 9.1 10^3/uL (3.8-11.8)
[2023-07-03 12:53] LABS: Calcium 7.7 mg/dL (8.6-10.3); Creatinine, Serum 1.57 mg/dL (0.51-0.95); Potassium 4.1 mmol/L (3.5-5.0); eGFR CKD-EPI 37.3 (>60)
[2023-07-03 13:53] LABS: ABS Lymphocytes 1.3 10^3/uL (1.0-4.8); ABS Monocytes 0.3 10^3/uL (0.0-0.9); ABS Neutrophils 7.5 10^3/uL (1.5-7.6); ABS Nucleated RBC 0.01 10^3/ul; Eosinophil % 0.1 %; Lymphocyte % 13.8 %; Nucleated Red Blood Cells % 0.1 %/100WBC (0.0-0.8)
[2023-07-03] MEDS: HYDROcodone/ACETAMIN 5/325 mg TAB PO PRN (15:50)
[2023-07-03] MEDS: Heparin 5000 UNITS/ML 1 mL VIAL SUBCUT SCH (15:50)
[2023-07-03] MEDS: cefTRIAXone 1 gm/50 mL D5W 1 GM/50 ML BAG IV SCH (18:08)
[2023-07-03] MEDS: Nystatin TOP POWDER 15 GM BTL TOPICAL SCH (23:16)
[2023-07-04] MEDS: Azithromycin 500 mg/250 ml NS 500 MG/250 ML BAG IVPB SCH (11:21)
[2023-07-04] MEDS: Cholecalciferol (VIT D3) 1,000 unit TAB PO SCH (11:23)
[2023-07-05 09:28] VITALS: BP 118/84
== END 2023-07-05 13:15 ==
LOC: INTOOBSV 10:18 → MED 10:18 → SUATTDRO 11:22
PROVIDERS: ADMIT Student in an Organized Health Care Education/Training Program; ATTEND Internal Medicine